=== PATIENT | male | born 1985 | race African-American/Black ===

== ENCOUNTER 2020-07-20 15:14 | Emergency (ER) | payer OTHER ==
[~2020-07-20] VITALS: Ht 185.4 cm; Wt 114.8 kg
[~2020-07-20 15:14] MED LIST: ACETAMINOPHEN-1 EAC1 PO; CEPHALEXIN 500500 M3 PO
[2020-07-20 17:36] LABS: ABSOLUTE BASOPHILS 0.1 thou/uL (0.0-0.2); ABSOLUTE EOSINOPHILS 0.3 thou/uL (0.0-0.7); ABSOLUTE LYMPHOCYTES 2.6 thou/uL (0.8-5.3); ABSOLUTE NEUTROPHILS 2.5 thou/uL (1.6-8.1); BASOPHILS 0.9 %; EOSINOPHILS 4.1 %; HEMATOCRIT 45.6 % (42.0-52.0); HEMOGLOBIN 15.6 gm/dL (14.0-18.0); LYMPHOCYTES 40.9 %; MCH 28.8 pg (26.0-34.0); MCHC 34.1 g/dL (28.0-37.0); MCV 84.5 fL (80.0-100.0); MONOCYTES 15.1 %; MPV 7.2 fl. (7.2-11.1); NUCLEATED RBCS 0 /100WBC; PLATELET COUNT* 313 thou/uL (150-400); RDW-CV 16.2 % (10.5-14.5); WBC 6.5 thou/uL (4.0-11.0)
[2020-07-20 17:45] LABS: CALCIUM 8.3 mg/dL (8.5-10.1); CREATININE 1.3 mg/dL (0.6-1.3)
[2020-07-20 17:50] LABS: ALBUMIN 3.5 g/dL (3.4-5.0); TOTAL BILIRUBIN 0.4 mg/dL (<0.1-1.0); TOTAL PROTEIN 7.2 g/dL (6.4-8.2)
[2020-07-20] MEDS ORDERED: MEDROLDOSEPACK PO (18:03)
[2020-07-20 18:19] VITALS: BP 150/95
[2020-07-20 18:42] LABS: ESR (SEDRATE) 1 mm/hr (0-15)
== END 2020-07-20 18:20 | disposition home or self-care (01) ==
LOC: M.ERS 15:14
PROVIDERS: Nurse Practitioner Psychiatric/Mental Health
DX: R60.0 Localized edema (principal); M79.671 Pain in right foot; Z90.89 Acquired absence of other organs

== ENCOUNTER 2020-09-30 09:05 | Emergency (ER) | payer OTHER ==
[~2020-09-30] VITALS: Ht 185.4 cm; Wt 115.2 kg
[~2020-09-30 09:05] MED LIST changes: +MEDROLDOSEPACK PO
[2020-09-30] MEDS ORDERED: AUGMENTIN 875-1 EACH PO (09:52)
[2020-09-30 10:08] VITALS: BP 130/88
== END 2020-09-30 10:09 | disposition home or self-care (01) ==
LOC: M.ERS 09:05
DX: H66.93 Otitis media, unspecified, bilateral (principal); Z90.89 Acquired absence of other organs

== ENCOUNTER 2020-11-16 05:23 | Emergency (ER) | payer OTHER ==
[~2020-11-16] VITALS: Ht 185.4 cm; Wt 108.9 kg
[~2020-11-16 05:23] MED LIST changes: +AUGMENTIN 875-1 EACH PO
[2020-11-16 05:57] LABS: ABSOLUTE BASOPHILS 0.1 thou/uL (0.0-0.2); ABSOLUTE EOSINOPHILS 0.2 thou/uL (0.0-0.7); ABSOLUTE LYMPHOCYTES 3.2 thou/uL (0.8-5.3); ABSOLUTE MONOCYTES 0.8 thou/uL (0.0-1.2); ABSOLUTE NEUTROPHILS 3.4 thou/uL (1.6-8.1); BASOPHILS 0.8 %; EOSINOPHILS 2.9 %; HEMATOCRIT 47.4 % (42.0-52.0); HEMOGLOBIN 16.5 gm/dL (14.0-18.0); LYMPHOCYTES 41.2 %; MCH 29.8 pg (26.0-34.0); MCHC 34.8 g/dL (28.0-37.0); MCV 85.7 fL (80.0-100.0); MONOCYTES 10.8 %; MPV 7.2 fl. (7.2-11.1); NUCLEATED RBCS 0 /100WBC; PLATELET COUNT* 276 thou/uL (150-400); POLYS 44.3 %; RBC 5.54 mil/uL (4.50-6.00); RDW-CV 14.2 % (10.5-14.5); WBC 7.7 thou/uL (4.0-11.0)
[2020-11-16 06:07] LABS: ANION GAP 7 mmol/L (7-16); BUN 10 mg/dL (7-18); CALCIUM 8.6 mg/dL (8.5-10.1); CHLORIDE 105 mmol/L (98-107); CO2 28 mmol/L (21-32); CREATININE 1.3 mg/dL (0.6-1.3); GLUCOSE 95 mg/dL (70-99); POTASSIUM 3.6 mmol/L (3.5-5.1); SODIUM 140 mmol/L (136-145)
[2020-11-16 06:10] LABS: PROTIME 10.7 Seconds (9.20-11.50)
[2020-11-16 06:17] LABS: ALBUMIN 3.7 g/dL (3.4-5.0); ALKALINE PHOSPHATASE 93 U/L (46-116); LIPASE 168 U/L (73-393); MAGNESIUM 1.8 mg/dL (1.8-2.4); NT-PRO BRAIN NAT PEPTIDE < 5 pg/mL (<300); SGOT 36 U/L (15-37); SGPT 62 U/L (30-65); TOTAL BILIRUBIN 0.7 mg/dL (<0.1-1.0); TOTAL PROTEIN 7.6 g/dL (6.4-8.2)
[2020-11-16 08:04] VITALS: BP 149/95
--- NOTE | 2020-11-18 10:39 | EKG ---
[place] [address] ELECTROCARDIOGRAM REPORT Name: PRAMOD ARGUETA Room: [facility]#: [id number] Admission: 11/16/20 Attend Phys: Discharge: 11/16/20 Date of : 83 Date of Service: 11/16/2029 Report #: [id number] THIS REPORT FOR: //name// [facility] ED Test Date: 2020-11-16 Test Time: 05:29:26 Pat Name: PRAMOD ARGUETA Department: Room: Gender: [employer]: ZACK Richards : 1985 Requested By: Gloria Zavala Order Number: [id number] MD: Erich Adames Measurements Intervals [place] Rate: 71 P: 35 WI: 189 QRS: 60 QRSD: 89 T: 53 QT: 394 QTc: 429 Interpretive Statements Sinus rhythm No previous ECG available for comparison Electronically Signed On 11-18-2020 10:39:15 CDT by Erich Adames [email or web address] <ELECTRONICALLY SIGNED> By: Erich Adames MD, [facility] 11/18/20 1039 [id number] 8 Erich Adames MD, FACC /EPI
== END 2020-11-16 08:04 | disposition home or self-care (01) ==
LOC: M.ERS 05:23
PROVIDERS: Emergency Medicine
DX: R07.89 Other chest pain (principal); M54.6 Pain in thoracic spine; Z20.822 Contact with and (suspected) exposure to COVID-19; Z90.89 Acquired absence of other organs